=== PATIENT | male | born 1945 | race Caucasian/White ===

== ENCOUNTER → 2017-04-05 | Outpatient (CLI) | payer OTHER | END | disposition home or self-care (01) | LOC: HKI 13:36 | DX: M17.0 Bilateral primary osteoarthritis of knee (principal); I10 Essential (primary) hypertension; E11.9 Type 2 diabetes mellitus without complications; E78.00 Pure hypercholesterolemia, unspecified; Z79.84 Long term (current) use of oral hypoglycemic drugs; Z79.82 Long term (current) use of aspirin | CPT/HCPCS: 20610; 73562-50 ==

== ENCOUNTER → 2017-07-29 | Outpatient (CLI) | payer OTHER | END | disposition home or self-care (01) | LOC: HKI 11:10 | DX: Z01.818 Encounter for other preprocedural examination (principal) | CPT/HCPCS: 87081 ==

== ENCOUNTER 2017-08-08 07:31 | Observation (INO) | payer MEDICARE, OTHER ==
[2017-08-08] MEDS: CEFAZOLIN 2 GM/50 ML (PMX) 50 ML (FOR WT < 120 KG) IVPB (06:00)
[~2017-08-08 07:31] MED LIST: LACTATED RINGER'S 1,000 ML IV; ROCURONIUM 50 MG INJ
[2017-08-08] MEDS: ONDANSETRON 4 MG INJ IV ×4 (08:43→22:00)
[2017-08-08] MEDS: DEXAMETHASONE 4 MG/ML 1 ML INJ IV (08:43)
[2017-08-08] MEDS: ACETAMINOPHEN 1000MG/100ML IV 100 ML IVPB (08:43)
[2017-08-08] MEDS: LANSOPRAZOLE 30 MG CAP PO (08:44)
[2017-08-08] MEDS: TRANEXAMIC ACID 1,000 MG in D5W 100 ML AT CLOSURE X1 IVPB (09:50)
[2017-08-08] MEDS ORDERED: MIDAZOLAM 1 MG/ML 2 ML INJ (09:54)
[2017-08-08] MEDS ORDERED: FENTAnyl 50 MCG/ML VIAL ×2 (09:54→11:53)
[2017-08-08] MEDS ORDERED: ROCURONIUM 50 MG INJ (09:54)
[2017-08-08] MEDS ORDERED: CEFAZOLIN 1 GM INJ (09:54)
[2017-08-08] MEDS ORDERED: PROPOFOL 20 ML (09:54)
[2017-08-08] MEDS ORDERED: GLYCOPYRROLATE 0.4 MG INJ (09:54)
[2017-08-08] MEDS ORDERED: NEOSTIGMINE 3 MG/3 ML SYRINGE (09:54)
[2017-08-08] MEDS ORDERED: ONDANSETRON 4 MG INJ (09:55)
[2017-08-08] MEDS ORDERED: DEXAMETHASONE 4 MG/ML 1 ML INJ (09:55)
[2017-08-08] MEDS ORDERED: BISACODYL 10 MG SUPP PR (10:00)
[2017-08-08] MEDS ORDERED: NA PHOSPHATE/BIPHOS 133 ML ENEMA PR (10:00)
[2017-08-08] MEDS ORDERED: MAGNESIUM HYDROXIDE 30ML CUP PO (10:00)
[2017-08-08] MEDS ORDERED: TRIMETHOBENZAMIDE 100 MG/ML VIAL IM ×2 (10:00→11:00)
[2017-08-08] MEDS ORDERED: BETHANECHOL 25 MG TAB PO (10:00)
[2017-08-08] MEDS ORDERED: oxyCODONE 5 MG TAB PO (10:00)
[2017-08-08] MEDS ORDERED: SENNA/DOCUSATE NA (8.6MG/50MG) TAB PO (10:00)
[2017-08-08] MEDS ORDERED: DIPHENHYDRAMINE 50 MG INJ IV ×2 (10:00→11:00)
[2017-08-08] MEDS ORDERED: NALOXONE (0.4 MG/ML) INJ IV (10:00)
[2017-08-08] MEDS ORDERED: BUPIVACAINE 0.75%/DEXT (SPINAL) 2 ML INJ (10:03)
[2017-08-08] MEDS: POLYMYXIN B 500000 UNIT INJ (10:18)
[2017-08-08] MEDS: BACITRACIN 50000 UNITS INJ (10:48)
[2017-08-08] MEDS ORDERED: OXYCODONE/ACETAMINOPHEN (5/325) TAB PO ×2 (11:00)
[2017-08-08] MEDS ORDERED: LABETALOL HCL 20MG INJ IV (11:00)
[2017-08-08] MEDS ORDERED: ALBUTEROL 0.083% (NEB) 2.5 MG/3 ML AMP HHN (11:00)
[2017-08-08] MEDS ORDERED: EPHEDrine SULFATE 50 MG/5 ML SYG IV (11:00)
[2017-08-08] MEDS ORDERED: MEPERIDINE 25 MG INJ IV (11:00)
[2017-08-08] MEDS ORDERED: MIDAZOLAM 1 MG/ML 2 ML INJ IV (11:00)
[2017-08-08] MEDS ORDERED: HYDROmorphONE (0.2 MG/ML) 10ML SYG IV ×3 (11:00)
[2017-08-08] MEDS ORDERED: FENTAnyl 50 MCG/ML VIAL IV ×3 (11:00)
[2017-08-08] MEDS ORDERED: IPRATROPIUM (NEB) 0.5 MG/2.5 ML AMP HHN (11:00)
[2017-08-08] MEDS ORDERED: ONDANSETRON 4 MG INJ IV (11:00)
[2017-08-08] MEDS ORDERED: SUGAMMADEX SODIUM 200 MG/2 ML VIAL IV (11:51)
[2017-08-08] MEDS: TRANEXAMIC ACID 1,000 MG in D5W 100 ML AT INCISION X1 IVPB ×2 (12:16)
[2017-08-08] MEDS: DOCUSATE SODIUM 100 MG CAP PO (12:55)
[2017-08-08] MEDS: ASPIRIN (EC) 325 MG TAB PO (12:56)
[2017-08-08] MEDS: CEFAZOLIN 1 GM/50 ML (PMX) 50 ML IVPB ×2 (12:57→20:59)
[2017-08-08] MEDS: hydrALAzine 20 MG INJ IV (12:59)
[2017-08-08] MEDS ORDERED: GLUCOSE GEL 15 GRAM TUBE PO ×2 (13:30)
[2017-08-08] MEDS ORDERED: GLUCOSE GEL 15 GRAM TUBE BUCCAL (13:30)
[2017-08-08] MEDS ORDERED: GLUCAGON 1 MG INJ IM (13:30)
[2017-08-08] MEDS ORDERED: DEXTROSE 50% 50 ML SYRINGE IV ×2 (13:30)
[2017-08-08] MEDS: SOD CHLORIDE 0.9% 1,000 ML IV ×2 (14:35→22:04)
[2017-08-08] MEDS: oxyCODONE 5 MG TAB PO ×2 (16:26→20:58)
[2017-08-08] MEDS: GLIMEPIRIDE 4 MG TAB PO (17:25)
[2017-08-08] MEDS: KETOROLAC 15 MG INJ IV (17:44)
[2017-08-08] MEDS: INSULIN ASPART [NOVOLOG] 3 ML PEN SC ×2 (17:55→21:10)
[2017-08-08] MEDS: TAMSULOSIN (SR) 0.4 MG CAP PO (20:57)
[2017-08-08] MEDS: CELECOXIB 100 MG CAP PO (21:00)
[2017-08-08] MEDS: GABAPENTIN 100 MG CAP PO (21:00)
[2017-08-08] MEDS ORDERED: IBUPROFEN 600 MG TAB PO (22:00)
[2017-08-09] MEDS: oxyCODONE 5 MG TAB PO ×2 (01:50→05:29)
[2017-08-09] MEDS: SOD CHLORIDE 0.9% 1,000 ML IV (01:50)
[2017-08-09] MEDS: ACCU-CHEK XX (02:00)
[2017-08-09] MEDS: ONDANSETRON 4 MG INJ IV (04:00)
[2017-08-09] MEDS: CEFAZOLIN 1 GM/50 ML (PMX) 50 ML IVPB (05:16)
[2017-08-09 05:44] LABS: ADD MAN DIFF? NO
[2017-08-09 05:55] LABS: BASOPHILS % 0.1 % (0.0-2.0); EOSINOPHILS % 0.1 % (0.0-7.0); HEMATOCRIT 30.8 % (42.0-52.0); HEMOGLOBIN 10.9 g/dl (14.0-18.0); LYMPHOCYTES # 1.1 10^3/ul (0.8-2.9); LYMPHOCYTES % 9.5 % (15.0-51.0); MEAN CORPUSCULAR HEMOGLOBIN 29.9 pg (29.0-33.0); MEAN CORPUSCULAR HGB CONC 35.4 g/dl (32.0-37.0); MEAN CORPUSCULAR VOLUME 84.6 fl (82.0-101.0); MEAN PLATELET VOLUME 10.2 fl (7.4-10.4); MONOCYTE # 1.1 10^3/ul (0.3-0.9); MONOCYTES % 9.7 % (0.0-11.0); NEUTROPHIL # 9.1 10^3/ul (1.6-7.5); NEUTROPHILS % 80.2 % (39.0-77.0); PLATELET COUNT 220 10^3/UL (140-415); RED BLOOD COUNT 3.64 10^6/ul (4.70-6.10)
[2017-08-09 05:55] LABS: WHITE BLOOD COUNT 11.3 10^3/ul (4.8-10.8)
[2017-08-09 06:08] LABS: ANION GAP 15 (8-16); BLOOD UREA NITROGEN 16 mg/dl (7-20); CALCIUM 8.8 mg/dl (8.4-10.2); CARBON DIOXIDE 23 mmol/L (21-31); CHLORIDE 100 mmol/L (97-110); CREATININE 0.83 mg/dl (0.61-1.24); GLUCOSE 192 mg/dl (70-220); POTASSIUM 4.2 mmol/L (3.5-5.1); SODIUM 134 mmol/L (135-144)
[2017-08-09] MEDS: GABAPENTIN 100 MG CAP PO (08:06)
[2017-08-09] MEDS: LISINOPRIL 5 MG TAB PO (08:06)
[2017-08-09] MEDS: DOCUSATE SODIUM 100 MG CAP PO (08:06)
[2017-08-09] MEDS: FINASTERIDE 5 MG TAB PO (08:07)
[2017-08-09] MEDS: metFORMIN 500 MG TAB PO (08:07)
[2017-08-09] MEDS: CELECOXIB 100 MG CAP PO (08:07)
[2017-08-09] MEDS: FERROUS FUMARATE (SR) TAB PO (08:07)
[2017-08-09] MEDS: LINAGLIPTIN 5 MG TABLET PO (08:07)
[2017-08-09] MEDS: ASPIRIN (EC) 325 MG TAB PO (08:08)
[2017-08-09] MEDS: INSULIN ASPART [NOVOLOG] 3 ML PEN SC (08:14)
[2017-08-10] MEDS ORDERED: PANTOPRAZOLE (EC) 40 MG TAB PO (06:00)
== END 2017-08-09 13:15 | disposition home health service (06) ==
LOC: REC 07:31 → MS1 14:26
PROVIDERS: Orthopaedic Surgery
DX: M17.11 Unilateral primary osteoarthritis, right knee (principal); E78.5 Hyperlipidemia, unspecified; E11.40 Type 2 diabetes mellitus with diabetic neuropathy, unspecified; E11.22 Type 2 diabetes mellitus with diabetic chronic kidney disease; I12.9 Hypertensive chronic kidney disease with stage 1 through stage 4 chronic kidney disease, or unspecified chronic kidney disease; N18.9 Chronic kidney disease, unspecified; N40.0 Benign prostatic hyperplasia without lower urinary tract symptoms; R26.2 Difficulty in walking, not elsewhere classified; Z79.84 Long term (current) use of oral hypoglycemic drugs
CPT/HCPCS: 27447; 73560; 80048; 82962; 85025; 87086; 88304; 88311; 97116; 97161; 97530; 99217

== ENCOUNTER → 2017-08-26 | Outpatient (CLI) | payer OTHER | END | disposition home or self-care (01) | LOC: HKI 10:31 | DX: Z47.1 Aftercare following joint replacement surgery (principal); Z96.651 Presence of right artificial knee joint | CPT/HCPCS: 73560; 73560-RT ==

== ENCOUNTER → 2017-09-23 | Outpatient (CLI) | payer OTHER | END | disposition home or self-care (01) | LOC: HKI 10:56 | DX: Z47.1 Aftercare following joint replacement surgery (principal); Z96.651 Presence of right artificial knee joint | CPT/HCPCS: 73560; 73560-RT ==

== ENCOUNTER 2017-09-29 00:24 | Emergency (ER) | payer OTHER ==
[2017-09-29] MEDS: OXYCODONE/ACETAMINOPHEN (5/325) TAB PO (01:01)
== END 2017-09-29 03:06 | disposition home or self-care (01) ==
LOC: FTE 00:24
DX: M25.561 Pain in right knee (principal); Z79.84 Long term (current) use of oral hypoglycemic drugs; Z96.652 Presence of left artificial knee joint
CPT/HCPCS: 73562; 99283-25

== ENCOUNTER → 2017-11-04 | Outpatient (CLI) | payer OTHER | END | disposition home or self-care (01) | LOC: HKI 09:50 | DX: Z47.1 Aftercare following joint replacement surgery (principal); Z96.651 Presence of right artificial knee joint | CPT/HCPCS: 73560; 73560-RT ==

== ENCOUNTER → 2018-02-03 | Outpatient (CLI) | payer OTHER | END | disposition home or self-care (01) | LOC: HKI 10:09 | DX: Z09 Encounter for follow-up examination after completed treatment for conditions other than malignant neoplasm (principal); Z96.651 Presence of right artificial knee joint | CPT/HCPCS: 73560; 73560-RT ==

== ENCOUNTER 2018-02-08 01:16 | Inpatient (IN) | payer MEDICARE, OTHER ==
[2018-02-08] MEDS: VANCOMYCIN 1 GM (PMX) 250 ML IVPB (02:00)
[2018-02-08] MEDS: SOD CHLORIDE 0.9% 1,000 ML IV (02:03)
[2018-02-08] MEDS: CEFTRIAXONE 1 GM/50 ML (PMX) 50 ML IVPB ×3 (02:07→20:15)
[2018-02-08 02:09] LABS: ADD MAN DIFF? NO
[2018-02-08 02:12] LABS: WHITE BLOOD COUNT 10.7 10^3/ul (4.8-10.8)
[2018-02-08 02:12] LABS: BASOPHIL # 0.1 10^3/ul (0.0-0.1); BASOPHILS % 0.5 % (0.0-2.0); EOSINOPHILS # 0.2 10^3/ul (0.0-0.5); EOSINOPHILS % 1.6 % (0.0-7.0); HEMATOCRIT 43.1 % (42.0-52.0); HEMOGLOBIN 14.2 g/dl (14.0-18.0); LYMPHOCYTES # 1.3 10^3/ul (0.8-2.9); LYMPHOCYTES % 11.8 % (15.0-51.0); MEAN CORPUSCULAR HEMOGLOBIN 27.6 pg (29.0-33.0); MEAN CORPUSCULAR HGB CONC 32.9 g/dl (32.0-37.0); MEAN CORPUSCULAR VOLUME 83.9 fl (82.0-101.0); MEAN PLATELET VOLUME 10.3 fl (7.4-10.4); MONOCYTE # 1.2 10^3/ul (0.3-0.9); MONOCYTES % 11.5 % (0.0-11.0); NEUTROPHILS % 74.3 % (39.0-77.0); PLATELET COUNT 279 10^3/UL (140-415); RED BLOOD COUNT 5.14 10^6/ul (4.70-6.10); RED CELL DISTRIBUTION WIDTH 14.1 % (11.5-14.5)
[2018-02-08 02:17] LABS: ALANINE AMINOTRANSFERASE 26 IU/L (13-69); ALBUMIN 4.6 g/dl (3.3-4.9); ALBUMIN/GLOBULIN RATIO 1.24; ALKALINE PHOSPHATASE 63 IU/L (42-121); ANION GAP 16 (5-13); ASPARTATE AMINO TRANSFERASE 21 IU/L (15-46); BILIRUBIN,INDIRECT 0.3 mg/dl (0-1.1); BILIRUBIN,TOTAL 0.3 mg/dl (0.2-1.3); BLOOD UREA NITROGEN 20 mg/dl (7-20); CALCIUM 9.9 mg/dl (8.4-10.2); CARBON DIOXIDE 21 mmol/L (21-31); CHLORIDE 102 mmol/L (97-110); CREATININE 0.91 mg/dl (0.61-1.24); GLUCOSE 229 mg/dl (70-220); LIPASE 124 U/L (23-300); POTASSIUM 4.7 mmol/L (3.5-5.1); SODIUM 139 mmol/L (135-144); TOTAL PROTEIN 8.3 g/dl (6.1-8.1)
[2018-02-08 02:19] LABS: INR 0.94; PARTIAL THROMBOPLASTIN TIME 28.5 Sec (23.0-35.0); PROTIME 12.7 Sec (11.9-14.9)
[2018-02-08] MEDS: PIPER-TAZO 3.375 GM IV (PMX) 100 ML IVPB ×4 (02:32→17:33)
[2018-02-08] MEDS ORDERED: ACETAMINOPHEN 325 MG TAB PO (05:00)
[2018-02-08] MEDS ORDERED: GLUCOSE GEL 15 GRAM TUBE PO ×2 (06:00)
[2018-02-08] MEDS ORDERED: GLUCAGON 1 MG INJ IM (06:00)
[2018-02-08] MEDS ORDERED: GLUCOSE GEL 15 GRAM TUBE BUCCAL (06:00)
[2018-02-08] MEDS ORDERED: DEXTROSE 50% 50 ML SYRINGE IV ×2 (06:00)
[2018-02-08] MEDS ORDERED: NON-FORMULARY/PATIENT OWN MED (Omeprazole* 20 MG) PO (07:30)
[2018-02-08] MEDS: ACCU-CHEK XX ×4 (07:30→20:19)
[2018-02-08] MEDS: INSULIN ASPART [NOVOLOG] 3 ML PEN SC ×4 (08:49→20:19)
[2018-02-08] MEDS: FLUTICASONE 0.05% 16 GM NAS SPRAY NASAL (08:51)
[2018-02-08] MEDS: ASPIRIN (EC) 81 MG TAB PO (08:53)
[2018-02-08] MEDS: PANTOPRAZOLE (EC) 40 MG TAB PO (08:54)
[2018-02-08] MEDS: FISH OIL 1,000 MG CAP PO (08:54)
[2018-02-08] MEDS: LINAGLIPTIN 5 MG TABLET PO (08:54)
[2018-02-08] MEDS: EMPAGLIFLOZIN 10 MG TABLET PO (08:54)
[2018-02-08] MEDS: AMANTADINE 100 MG CAP PO ×2 (08:54→20:18)
[2018-02-08] MEDS: GLIMEPIRIDE 4 MG TAB PO ×2 (08:55→17:33)
[2018-02-08] MEDS: metFORMIN 500 MG TAB PO ×2 (08:55→17:33)
[2018-02-08] MEDS: FINASTERIDE 5 MG TAB PO (08:55)
[2018-02-08] MEDS: CELECOXIB 200 MG CAP PO ×2 (08:55→20:16)
[2018-02-08] MEDS: LISINOPRIL 5 MG TAB PO (08:59)
[2018-02-08] MEDS: LOSARTAN 25 MG TAB PO (08:59)
[2018-02-08] MEDS ORDERED: EPA PO (09:00)
[2018-02-08] MEDS ORDERED: [UNRECOGNIZED DRUG - OTHER] PO (09:00)
[2018-02-08] MEDS ORDERED: OMEGA PO (09:00)
[2018-02-08] MEDS ORDERED: D3 PO (09:00)
[2018-02-08] MEDS ORDERED: DHA PO (09:00)
[2018-02-08] MEDS ORDERED: FISH OIL PO (09:00)
[2018-02-08 12:48] LABS: LACTIC ACID 2.8 mmol/L (0.5-2.0)
[2018-02-08 19:42] LABS: LACTIC ACID 2.3 mmol/L (0.5-2.0)
[2018-02-08] MEDS: ROPINIROLE 0.25 MG TAB PO (20:17)
[2018-02-08] MEDS: ATORVASTATIN 40 MG TAB PO (20:17)
[2018-02-08] MEDS: TAMSULOSIN (SR) 0.4 MG CAP PO (20:18)
[2018-02-08] MEDS ORDERED: SIMVASTATIN 80 MG PO (21:00)
[2018-02-09] MEDS: ACCU-CHEK XX ×5 (00:20→21:00)
[2018-02-09] MEDS: PIPER-TAZO 3.375 GM IV (PMX) 100 ML IVPB ×4 (00:20→17:09)
[2018-02-09 05:14] LABS: ADD MAN DIFF? NO
[2018-02-09 05:20] LABS: BASOPHILS % 0.4 % (0.0-2.0); EOSINOPHILS # 0.2 10^3/ul (0.0-0.5); EOSINOPHILS % 2.5 % (0.0-7.0); HEMATOCRIT 39.1 % (42.0-52.0); HEMOGLOBIN 12.6 g/dl (14.0-18.0); LYMPHOCYTES # 1.4 10^3/ul (0.8-2.9); LYMPHOCYTES % 15.1 % (15.0-51.0); MEAN CORPUSCULAR HEMOGLOBIN 27.7 pg (29.0-33.0); MEAN CORPUSCULAR HGB CONC 32.2 g/dl (32.0-37.0); MEAN CORPUSCULAR VOLUME 85.9 fl (82.0-101.0); MEAN PLATELET VOLUME 10.1 fl (7.4-10.4); MONOCYTES % 10.7 % (0.0-11.0); NEUTROPHIL # 6.6 10^3/ul (1.6-7.5); PLATELET COUNT 235 10^3/UL (140-415); RED BLOOD COUNT 4.55 10^6/ul (4.70-6.10); RED CELL DISTRIBUTION WIDTH 14.4 % (11.5-14.5)
[2018-02-09 05:20] LABS: WHITE BLOOD COUNT 9.3 10^3/ul (4.8-10.8)
[2018-02-09 05:47] LABS: LACTIC ACID 0.9 mmol/L (0.5-2.0)
[2018-02-09 06:21] LABS: ANION GAP 11 (5-13); BLOOD UREA NITROGEN 17 mg/dl (7-20); CALCIUM 9.6 mg/dl (8.4-10.2); CARBON DIOXIDE 23 mmol/L (21-31); CHLORIDE 105 mmol/L (97-110); CREATININE 1.06 mg/dl (0.61-1.24); GLUCOSE 91 mg/dl (70-220); POTASSIUM 4.4 mmol/L (3.5-5.1); SODIUM 139 mmol/L (135-144)
[2018-02-09] MEDS: INSULIN ASPART [NOVOLOG] 3 ML PEN SC ×4 (08:00→21:00)
[2018-02-09] MEDS: AMANTADINE 100 MG CAP PO ×2 (08:12→21:31)
[2018-02-09] MEDS: ASPIRIN (EC) 81 MG TAB PO (08:12)
[2018-02-09] MEDS: FINASTERIDE 5 MG TAB PO (08:13)
[2018-02-09] MEDS: FISH OIL 1,000 MG CAP PO (08:13)
[2018-02-09] MEDS: EMPAGLIFLOZIN 10 MG TABLET PO (08:13)
[2018-02-09] MEDS: CELECOXIB 200 MG CAP PO ×2 (08:13→21:32)
[2018-02-09] MEDS: PANTOPRAZOLE (EC) 40 MG TAB PO (08:13)
[2018-02-09] MEDS: LINAGLIPTIN 5 MG TABLET PO (08:13)
[2018-02-09] MEDS: GLIMEPIRIDE 4 MG TAB PO ×2 (08:13→17:34)
[2018-02-09] MEDS: CEFTRIAXONE 1 GM/50 ML (PMX) 50 ML IVPB ×2 (08:14→21:31)
[2018-02-09] MEDS: FLUTICASONE 0.05% 16 GM NAS SPRAY NASAL (08:15)
[2018-02-09] MEDS: LISINOPRIL 5 MG TAB PO (09:00)
[2018-02-09] MEDS: ROPINIROLE 0.25 MG TAB PO (21:31)
[2018-02-09] MEDS: ATORVASTATIN 40 MG TAB PO (21:31)
[2018-02-09] MEDS: TAMSULOSIN (SR) 0.4 MG CAP PO (21:32)
[2018-02-10] MEDS: PIPER-TAZO 3.375 GM IV (PMX) 100 ML IVPB ×2 (00:07→06:25)
[2018-02-10] MEDS: ACCU-CHEK XX ×2 (02:00→08:27)
[2018-02-10] MEDS: PANTOPRAZOLE (EC) 40 MG TAB PO (06:25)
[2018-02-10 06:57] LABS: ADD MAN DIFF? NO
[2018-02-10 07:05] LABS: WHITE BLOOD COUNT 7.9 10^3/ul (4.8-10.8)
[2018-02-10 07:05] LABS: BASOPHILS % 0.4 % (0.0-2.0); EOSINOPHILS # 0.3 10^3/ul (0.0-0.5); EOSINOPHILS % 3.4 % (0.0-7.0); HEMATOCRIT 39.2 % (42.0-52.0); HEMOGLOBIN 12.8 g/dl (14.0-18.0); LYMPHOCYTES # 1.3 10^3/ul (0.8-2.9); LYMPHOCYTES % 16.7 % (15.0-51.0); MEAN CORPUSCULAR HEMOGLOBIN 27.9 pg (29.0-33.0); MEAN CORPUSCULAR HGB CONC 32.7 g/dl (32.0-37.0); MEAN CORPUSCULAR VOLUME 85.6 fl (82.0-101.0); MEAN PLATELET VOLUME 10.1 fl (7.4-10.4); MONOCYTE # 0.8 10^3/ul (0.3-0.9); MONOCYTES % 9.8 % (0.0-11.0); NEUTROPHIL # 5.5 10^3/ul (1.6-7.5); NEUTROPHILS % 69.4 % (39.0-77.0); PLATELET COUNT 251 10^3/UL (140-415); RED BLOOD COUNT 4.58 10^6/ul (4.70-6.10); RED CELL DISTRIBUTION WIDTH 14.5 % (11.5-14.5)
[2018-02-10 07:27] LABS: ANION GAP 12 (5-13); BLOOD UREA NITROGEN 17 mg/dl (7-20); CALCIUM 9.7 mg/dl (8.4-10.2); CARBON DIOXIDE 22 mmol/L (21-31); CHLORIDE 103 mmol/L (97-110); CREATININE 1.13 mg/dl (0.61-1.24); GLUCOSE 121 mg/dl (70-220); POTASSIUM 4.2 mmol/L (3.5-5.1); SODIUM 137 mmol/L (135-144)
[2018-02-10 07:30] LABS: HEMOGLOBIN A1C 6.5 % (0-5.9)
[2018-02-10] MEDS: CEFTRIAXONE 1 GM/50 ML (PMX) 50 ML IVPB (08:21)
[2018-02-10] MEDS: FLUTICASONE 0.05% 16 GM NAS SPRAY NASAL (08:24)
[2018-02-10] MEDS: INSULIN ASPART [NOVOLOG] 3 ML PEN SC (08:24)
[2018-02-10] MEDS: ASPIRIN (EC) 81 MG TAB PO (08:25)
[2018-02-10] MEDS: EMPAGLIFLOZIN 10 MG TABLET PO (08:25)
[2018-02-10] MEDS: LINAGLIPTIN 5 MG TABLET PO (08:26)
[2018-02-10] MEDS: CELECOXIB 200 MG CAP PO (08:26)
[2018-02-10] MEDS: LISINOPRIL 5 MG TAB PO (08:26)
[2018-02-10] MEDS: FISH OIL 1,000 MG CAP PO (08:26)
[2018-02-10] MEDS: FINASTERIDE 5 MG TAB PO (08:26)
[2018-02-10] MEDS: AMANTADINE 100 MG CAP PO (08:26)
[2018-02-10] MEDS: GLIMEPIRIDE 4 MG TAB PO (08:35)
== END 2018-02-10 11:30 | disposition home or self-care (01) | DRG 603 ==
LOC: PP2 02-09 12:25 → E/R 01:16 → PP2 02:13
DX: L03.116 Cellulitis of left lower limb (principal); E87.2 Acidosis; E78.5 Hyperlipidemia, unspecified; E11.21 Type 2 diabetes mellitus with diabetic nephropathy; N40.0 Benign prostatic hyperplasia without lower urinary tract symptoms; J31.0 Chronic rhinitis
CPT/HCPCS: 36415; 71045; 73590; 80048; 80053; 82962; 83036; 83605; 83690; 85025; 85610; 85730; 87040; 96374; 96375; 99285-25

== ENCOUNTER 2018-09-14 15:49 | Emergency (ER) | payer OTHER, MEDICARE ==
[2018-09-14] MEDS: BACITRACIN 0.9 GM OINT TOP (16:41)
[2018-09-14] MEDS: LIDOCAINE 1% (MDV) 20 ML INJ SC (17:20)
== END 2018-09-14 18:40 | disposition home or self-care (01) ==
LOC: FTE 15:49
DX: S61.211A Laceration without foreign body of left index finger without damage to nail, initial encounter (principal); I10 Essential (primary) hypertension; W26.0XXA Contact with knife, initial encounter; Y92.9 Unspecified place or not applicable; Z79.82 Long term (current) use of aspirin; Z79.84 Long term (current) use of oral hypoglycemic drugs
CPT/HCPCS: 12001; 73140; 99283-25